=== PATIENT | female | born 1985 | race Caucasian/White ===

== ENCOUNTER 2017-08-08 15:19 | Emergency (ER) | payer OTHER ==
[2017-08-08 15:40] VITALS: BP 135/100
[2017-08-08] MEDS ORDERED: cephALEXin 250 MG CAPSULE PO STA (15:44)
[2017-08-08] MEDS ORDERED: SULFAMETH/TRIMETH DS 800/160 MG TABLET PO STA (15:44)
--- NOTE | 2017-08-08 15:49 | ED Physician Documentation ---
PD HPI SKIN - Stated complaint Stated Complaint: WOUND CHECK ON LEFT SHOULDER BLADE - Chief complaint Chief Complaint: Wound - History obtained from History obtained from: Patient - History of Present Illness Timing - onset: Today, How many days ago (several) Timing - duration: Days Timing - details: Gradual onset Pain level max: 0 Pain level now: 0 Location: Other (L upper back) Quality / character: Raised, Draining (states pus drained 2 days ago) Improved by: Oral steroids Worsened by (comment): COMMENT (nothing) Associated symptoms: No: Fever, Myalgias, Joint pain, Headache, Facial swelling , Dyspnea, Abd pain, N/V/D, Urinary sx Contributing factors: No: Exposed to medication, Exposed to food, Exposed to soap / lotion, Exposed to Poison suri/oak, Insect bite /sting, Recent illness - Additional information Additional information: States had a basal cell carcinoma to the L upper back removed recently. Noted redness and swelling to the wound recently. Was seen at [facility] and started on keflex 500mg PO BID. States increased redness today. Review of Systems Constitutional: denies: Fever, Chills : denies: Now EGA Skin: denies: Rash Musculoskeletal: denies: Neck pain, Back pain Neurologic: denies: Headache PD PAST MEDICAL HISTORY - Past Medical History Past Medical History: No - Present Medications Home Medications: Ambulatory Orders Medication Instructions Recorded Confirmed Cephalexin [Keflex] 500 mg PO BID 08/08/17 08/08/17 Cephalexin [Keflex] 500 mg PO Q6H #28 capsule 08/08/17 Sulfamethox/Trimeth 800/160 1 each PO BID #14 tablet 08/08/17 [Bactrim Ds 800/160] - Allergies Allergies/Adverse Reactions: Allergies Allergy/AdvReac Type Severity Reaction Status Date / Time latex Allergy Itching Verified 08/08/17 15:35 - Social History Does the pt smoke?: No Smoking Status: Never smoker PD ED PE NORMAL - Vitals Vital signs reviewed: Yes - General General: Alert and oriented X 3, No acute distress - HEENT HEENT: Moist mucous membranes - Neck Neck: Supple, no meningeal sign - Derm Derm: Warm and dry - Neuro Neuro: Alert and oriented X 3 PD ED PE EXPANDED - Back Back visual: 1 - swelling (erythema, mild dehiscence. no drainage here.) Results - Vitals Vitals: Vital Signs - 24 hr 08/08/17 15:36 Temperature 36.4 C L Heart Rate 104 H Respiratory 16 Rate Blood Pressure 135/100 H O2 Saturation 100 Oxygen O2 Source Room air PD MEDICAL DECISION MAKING - ED course Complexity details: considered differential, d/w patient ED course: Patient is a 32-year-old female who presents to the emergency department with worsening redness around her sutures which are in her back. These are from a basal cell carcinoma removal. She was started on Keflex 500mg twice daily but is not improving. We will change this to 500 4 times daily and add Bactrim as well. Unclear if this represents a true infection and cellulitis versus a possible reaction to the sutures and the Vicryl. Recommend that she follow-up closely with her commercial finance analyst on Thursday for repeat evaluation. She is well- appearing, nontoxic. Afebrile. Patient counseled regarding signs and symptoms for which I believe and urgent re-evaluation would be necessary. Patient with good understanding of and agreement to plan and is comfortable going home at this time This document was made in part using voice recognition software. While efforts are made to proofread this document, sound alike and grammatical errors may occur. - Sepsis Event Vital Signs: Vital Signs - 24 hr 08/08/17 15:36 Temperature 36.4 C L Heart Rate 104 H Respiratory 16 Rate Blood Pressure 135/100 H O2 Saturation 100 Oxygen O2 Source Room air Departure - Departure Disposition: 01 Home, Self Care Clinical Impression: Cellulitis Qualifiers: Site of cellulitis: trunk Site of cellulitis of trunk: abdominal wall Qualified Code(s): L03.311 - Cellulitis of abdominal wall Condition: Good Instructions: ED Infec Skin Cellulitis Follow-Up: Clifton Arellano ARNP [Primary Care Provider] - Within 1 week Prescriptions: Cephalexin [Keflex] 500 mg PO Q6H #28 capsule Sulfamethox/Trimeth 800/160 [Bactrim Ds 800/160] 1 each PO BID #14 tablet Comments: Take all antibiotics until gone. Return if you worsen. This could be infectious or could represent a reaction to the stitches. I would advise following up with your commercial finance analyst on Thursday either way.
== END 2017-08-08 16:03 | disposition home or self-care (01) ==
LOC: ED 15:19
DX: L03.312 Cellulitis of back [any part except buttock and flank] (principal); Z85.828 Personal history of other malignant neoplasm of skin; Z98.890 Other specified postprocedural states
CPT/HCPCS: 99283; A9270

== ENCOUNTER 2017-12-17 07:45 | Emergency (ER) | payer OTHER ==
[2017-12-17] MEDS ORDERED: IOPAMIDOL-300 100 ML VIAL ONE (08:19)
--- NOTE | 2017-12-17 08:27 | ED Physician Documentation ---
PD HPI HEADACHE - Stated complaint Stated Complaint: CLUSTER HEADACHES - Chief complaint Chief Complaint: Neuro - History obtained from History obtained from: Patient - History of Present Illness Timing - onset: Last night Timing - onset during: Exertion (sexual activity) Timing - duration: Hours (1) Timing - details: Abrupt onset Pain level max: 10 Pain level now: 0 Location: Front, Left Associated symptoms: Nausea. No: Fever, Stiff neck, Vomiting, Weakness, Numbness, Syncope, Seizure, Eye pain, Vision changes Improved by: Rest Worsened by: Light, Noise Similar symptoms before: Has not had sx before Recently seen: Not recently seen - Additional information Additional information: Patient is a 32-year-old female who presents to the emergency department with a left-sided frontal headache during sexual intercourse last night. This lasted approximately an hour. Has not had similar symptoms before other than the night prior when similar symptoms occurred but only lasted approximately 15-20 minutes. No visual changes. No neck pain. No fevers. Currently asymptomatic. Denies any possibility of . Review of Systems Ten Systems: 10 systems reviewed and negative Constitutional: denies: Fever, Chills Ears: denies: Ear pain Nose: denies: Rhinorrhea / runny nose, Congestion, Sinus pressure / pain Throat: denies: Sore throat Cardiac: denies: Chest pain / pressure Respiratory: denies: Dyspnea, Cough, Wheezing GI: denies: Abdominal Pain, Nausea, Vomiting, Diarrhea Skin: denies: Rash Musculoskeletal: denies: Neck pain, Back pain Neurologic: denies: Headache PD PAST MEDICAL HISTORY - Past Medical History Past Medical History: No - Present Medications Home Medications: Ambulatory Orders Medication Instructions Recorded Confirmed Cephalexin [Keflex] 500 mg PO BID 08/08/17 08/08/17 Cephalexin [Keflex] 500 mg PO Q6H #28 capsule 08/08/17 Sulfamethox/Trimeth 800/160 1 each PO BID #14 tablet 08/08/17 [Bactrim Ds 800/160] - Allergies Allergies/Adverse Reactions: Allergies Allergy/AdvReac Type Severity Reaction Status Date / Time latex Allergy Itching Verified 12/17/17 07:56 - Living Situation Living Situation: reports: With family Living Arrangement: reports: At home - Social History Does the pt smoke?: No Smoking Status: Never smoker Does the pt have substance abuse?: No PD ED PE NORMAL - Vitals Vital signs reviewed: Yes - General General: Alert and oriented X 3, No acute distress - HEENT HEENT: Moist mucous membranes - Neck Neck: Supple, no meningeal sign - Cardiac Cardiac: RRR, Strong equal pulses - Respiratory Respiratory: No respiratory distress, Clear bilaterally - Abdomen Abdomen: Soft, Non tender, Non distended - Back Back: No spinal TTP - Derm Derm: Warm and dry, No rash - Extremities Extremities: Normal ROM s pain - Neuro Neuro: Alert and oriented X 3, punch molder 2-12 intact, No motor deficit, No sensory deficit, Normal speech Eye Opening: Spontaneous Motor: Obeys Commands Verbal: Oriented GCS Score: 15 - Psych Psych: Normal mood, Normal affect Results - Vitals Vitals: Vital Signs - 24 hr 12/17/17 12/17/17 07:54 10:13 Temperature 36.8 C Heart Rate 108 H 98 Respiratory 18 16 Rate Blood Pressure 142/86 H 146/89 H O2 Saturation 99 99 Oxygen O2 Source Room air - Labs Labs: Laboratory Tests 12/17/17 12/17/17 12/17/17 08:20 08:20 08:20 WBC 6.7 RBC 4.55 Hgb 14.4 Hct 41.0 MCV 90.1 MCH 31.6 H MCHC 35.0 RDW 12.3 Plt Count 269 MPV 8.9 Neut # (Auto) 5.3 Lymph # (Auto) 0.9 L Lassen # (Auto) 0.4 Eos # (Auto) 0.0 Baso # (Auto) 0.0 Absolute Nucleated RBC 0.00 Nucleated RBC % 0.0 Sodium 139 Potassium 3.6 Chloride 104 Carbon Dioxide 26 Anion Gap 9.0 BUN 10 Creatinine 0.6 Estimated GFR (MDRD) 114 Glucose 115 H Calcium 9.2 Serum HCG, Qual NEGATIVE - Rads (name of study) head CT angio Radiology: Prelim report reviewed, EMP read contemporaneously, See rad report (Normal) PD MEDICAL DECISION MAKING - ED course Complexity details: reviewed results, re-evaluated patient, considered differential, d/w patient ED course: Patient is a 32-year-old female who presents to the emergency department with Headaches x2 this week during intercourse. Negative head CT angiogram. No aneurysms. No evidence of bleed. We did discuss a lumbar puncture but she declines this at this time I think this is reasonable. She is well-appearing, nontoxic. Afebrile. Normal neurological exam. GCS 15. Patient counseled regarding signs and symptoms for which I believe and urgent re-evaluation would be necessary. Patient with good understanding of and agreement to plan and is comfortable going home at this time This document was made in part using voice recognition software. While efforts are made to proofread this document, sound alike and grammatical errors may occur. Departure - Departure Disposition: 01 Home, Self Care Clinical Impression: Headache Qualifiers: Headache type: unspecified Headache chronicity pattern: acute headache Intractability: not intractable Qualified Code(s): R51 - Headache Condition: Good Instructions: ED Cephalgia Unspecified Follow-Up: Clifton Arellano ARNP [Primary Care Provider] - As Needed Comments: Return if you worsen. Your testing is normal today. The cause of your symptoms is unclear Discharge Date/Time: 12/17/17 10:14
[2017-12-17 08:38] LABS: BASOPHILS % (AUTO) 0.4 %; EOSINOPHILS % (AUTO) 0.7 %; HGB - HEMOGLOBIN 14.4 g/dL (12.0-16.0); LYMPHOCYTES # (AUTO) 0.9 10^3/uL (1.5-3.5); LYMPHOCYTES % (AUTO) 13.9 %; MEAN CORPUSCULAR HEMOGLOBIN 31.6 pg (27.0-31.0); MEAN CORPUSCULAR VOLUME 90.1 fL (81.0-99.0); MEAN PLATELET VOLUME 8.9 fL (7.9-10.8); MONOCYTES # (AUTO) 0.4 10^3/uL (0.0-1.0); MONOCYTES % (AUTO) 6.2 %; NEUTROPHILS # (AUTO) 5.3 10^3/uL (1.5-6.6); NEUTROPHILS % (AUTO) 78.8 %; PLT - PLATELET COUNT 269 10^3/uL (130-450); RED BLOOD COUNT 4.55 10^6/uL (4.20-5.40); RED CELL DISTRIBUTION WIDTH 12.3 % (12.0-15.0); WHITE BLOOD COUNT 6.7 x10^3/uL (4.8-10.8)
[2017-12-17 08:57] LABS: CALCIUM 9.2 mg/dL (8.5-10.3); CREATININE 0.6 mg/dL (0.4-1.0)
[2017-12-17] MEDS ORDERED: IOPAMIDOL-300 100 ML VIAL IVP ONE (09:18)
[2017-12-17 09:33] LABS: HCG,QUALITATIVE BLOOD NEGATIVE
--- NOTE | 2017-12-17 09:35 | CT Report ---
Reason: L sided headache during intercourse, severe 9pm Procedure Date: 12/17/2017 Accession Number: [id number] / [id number] Procedure: CT - Head Angio CPT Code: FULL RESULT: EXAM: CT ANGIOGRAM HEAD. CT SCAN OF THE HEAD WITHOUT AND WITH CONTRAST. EXAM DATE: 12/17/2017 09:16 AM CLINICAL HISTORY: 32-year-old woman with severe left-sided headache during intercourse last night. COMPARISON: None. TECHNIQUE: - CT Scan Head: Using a multidetector scanner, axial images were acquired from the foramen magnum to the skull vertex prior to and following contrast administration. - CT Angiogram: Using a multidetector scanner, high-resolution axial images were acquired from the skull base through vertex following rapid infusion of intravenous contrast. Reformats: Multiplanar MIP reformats were reconstructed. Nascet criteria used for stenosis measurement. IV Contrast: ISOVUE 300 80mL. In accordance with CT protocol optimization, one or more of the following dose reduction techniques were utilized for this exam: automated exposure control, adjustment of mA and/or KV based on patient size, or use of iterative reconstructive technique. FINDINGS: NONCONTRAST HEAD: Parenchyma: No evidence of acute infarct, hemorrhage, or mass lesion. Parenchyma demonstrates normal attenuation characteristics. Ventricles and Extra-axial Spaces: Ventricles are symmetric and normal in size for age. No extra-axial hemorrhage or fluid collection. Orbits: Unremarkable. Sinuses: Paranasal sinuses and mastoid air cells are clear. Extracranial Soft Tissues and Bones: Soft tissues are unremarkable. No fractures. CTA HEAD: RIGHT: - Visualized Internal Carotid: Patent without significant stenosis or aneurysm. - Anterior Cerebral: Patent without significant stenosis or aneurysm. - Middle Cerebral: Patent without significant stenosis or aneurysm. - Posterior Cerebral: Patent without significant stenosis or aneurysm. The artery is primarily supplied by the posterior communicating artery, but there is a small, patent P1. - Posterior Communicating: Patent. No aneurysm. - Visualized Vertebral: Patent without significant stenosis or dissection. The right vertebral artery is dominant. LEFT: - Visualized Internal Carotid: Patent without significant stenosis or aneurysm. Small infundibulum of the posterior communicating artery is noted. - Anterior Cerebral: Patent without significant stenosis or aneurysm. - Middle Cerebral: Patent without significant stenosis or aneurysm. - Posterior Cerebral: Patent without significant stenosis or aneurysm. - Posterior Communicating: Patent. No aneurysm. 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 The artery terminates as PICA, a normal variant. CENTRAL: - Anterior Communicating: Patent. No aneurysm. - Basilar: Patent without significant stenosis, dissection, or aneurysm. Dural Venous Sinuses and Major Central Veins: Patent. The right transverse sinus is dominant. POSTCONTRAST HEAD: No abnormal enhancement. IMPRESSION: HEAD: 1. Normal head CT. No evidence of hemorrhage, infarct, or mass lesion. CTA HEAD: 1. Normal. No large vessel occlusion, significant vascular stenosis, or aneurysm. 2. Dural venous sinuses and major central veins are patent. RADIA
[2017-12-17 10:14] VITALS: BP 146/89
== END 2017-12-17 10:14 | disposition home or self-care (01) ==
LOC: ED 07:45
DX: R51 Headache (principal)
CPT/HCPCS: 36415; 70496; 80048; 84703; 85025; 99283; Q9967